=== PATIENT | female | born 1955 | race Asian ===

== ENCOUNTER → 2018-12-24 | Outpatient (CLI) | payer OTHER ==
[~2018-12-24] MED LIST: ATOR10TA84 PO; LISI1TAB13 PO; METF-444 PO; SITA100 PO
== END | disposition home or self-care (01) ==
LOC: RADMN 16:47
PROVIDERS: ATTEND Internal Medicine
DX: R76.11 Nonspecific reaction to tuberculin skin test without active tuberculosis (principal)